=== PATIENT | male | born 1985 | race African-American/Black ===

== ENCOUNTER 2019-02-13 19:34 | Emergency (ER) | payer OTHER ==
[~2019-02-13] VITALS: Ht 182.9 cm; Wt 87.3 kg
--- NOTE | 2019-02-13 22:11 | ECGEPIP ---
[facility] - ED Test Date: 2019-02-13 Pat Name: COREEN WRIGHT Department: Room: - Gender: Male [employer]: : 1985 Requested By: HAIM Walker Order Number: [id number] Reading MD: Farshad Allan Measurements Intervals Jelm Rate: 64 P: 61 OH: 160 QRS: 52 QRSD: 83 T: 60 QT: 380 QTc: 394 Interpretive Statements SINUS RHYTHM WITH SINUS ARRHYTHMIA Comparison tracing not on file Electronically Signed on 02-13-2019 22:11:10 EDT by Farshad Allan
[2019-02-14] MEDS ORDERED: ALBUTEROL SULFATE 2.5 MG/0.5 ML INH NEB SOLN NEB ONE (01:15)
[2019-02-14 01:31] LABS: BASO % 0.7 % (0.0-1.0); EOS # 0.5 10^3/uL (0.0-0.5); HEMATOCRIT 41.8 % (42.0-52.0); LYMPH # 2.8 10^3/uL (1.5-5.0); LYMPH % 46.2 % (24.0-44.0); MEAN CORPUSCULAR HEMOGLOBIN 23.5 pg (27.0-33.0); MEAN CORPUSCULAR HGB CONC 31.1 g/dl (32.0-36.5); MEAN CORPUSCULAR VOLUME 75.6 fl (80.0-96.0); MONO # 0.4 10^3/uL (0.0-0.8); MONO % 6.5 % (0.0-5.0); NEUTROPHILS # 2.4 10^3/uL (1.5-8.5); NEUTROPHILS % 38.4 % (36.0-66.0); PLATELET COUNT, AUTOMATED 190 10^3/uL (150-450); RED BLOOD COUNT 5.53 10^6/uL (4.30-6.10); WHITE BLOOD COUNT 6.2 10^3/uL (4.0-10.0)
[2019-02-14 02:03] LABS: BLOOD UREA NITROGEN 18 MG/DL (7-18); CALCIUM LEVEL 8.6 MG/DL (8.5-10.1); CARBON DIOXIDE LEVEL 30 MEQ/L (21-32); CHLORIDE LEVEL 107 MEQ/L (98-107); CK-MB VALUE MASS < 1.0 NG/ML (<3.6); CPK CREATINE PHOSPHOKINASE 261 U/L (39-308); CREATININE FOR GFR 1.02 MG/DL (0.70-1.30); GLOMERULAR FILTRATION RATE > 60.0 (>60); GLUCOSE, FASTING 97 MG/DL (70-100); MB/CK RELATIVE INDEX 0.38 (< OR =4); SODIUM LEVEL 142 MEQ/L (136-145); TROPONIN I < 0.02 NG/ML (< 0.10)
[2019-02-14 02:56] LABS: ALBUMIN 3.8 GM/DL (3.2-5.2); ALT/SGPT 19 U/L (12-78); BILIRUBIN,DIRECT < 0.1 MG/DL (0.0-0.2); BILIRUBIN,TOTAL 0.2 MG/DL (0.2-1.0); LIPASE 70 U/L (73-393); TOTAL PROTEIN 7.9 GM/DL (6.4-8.2)
[2019-02-14] MEDS ORDERED: PROAAER10 INH (02:56)
[2019-02-14] MEDS ORDERED: PRED20TA PO (02:56)
[2019-02-14 03:28] LABS: AMPHETAMINES LEVEL URINE NEGATIVE (NEGATIVE); BARBITURATES URINE NEGATIVE (NEGATIVE); BENZODIAZEPINES URINE NEGATIVE (NEGATIVE); CANNABINOIDS URINE NEGATIVE (NEGATIVE); COCAINE METABOLITE URINE NEGATIVE (NEGATIVE); METHADONE URINE NEGATIVE (NEGATIVE); OPIATES URINE NEGATIVE (NEGATIVE); PHENCYCLIDINE URINE NEGATIVE (NEGATIVE)
[2019-02-14 03:32] VITALS: BP 116/75
--- NOTE | 2019-02-14 06:42 | REP ---
Clinical: Shortness of breath and chest pain . Comparison: None . Technique: PA and lateral. Findings: The mediastinum and cardiac silhouette are normal. The lung barker are clear and without acute consolidation, effusion, or pneumothorax. The skeletal structures are intact and normal. Impression: 1. No acute cardiopulmonary process. Electronically Signed by Supa Delvalle MD 02/14/2019 06:34 A
== END 2019-02-14 03:47 | disposition home or self-care (01) ==
LOC: M ED 19:34
DX: R00.2 Palpitations (principal); G47.00 Insomnia, unspecified; F32.9 Major depressive disorder, single episode, unspecified; F41.9 Anxiety disorder, unspecified; F17.290 Nicotine dependence, other tobacco product, uncomplicated

== ENCOUNTER 2020-10-28 08:15 | Day surgery (SDC) | payer OTHER ==
[~2020-10-28] VITALS: Ht 177.8 cm; Wt 86.2 kg
[~2020-10-28 08:15] MED LIST: NS 1,000 ML IV ONE; PRED20TA PO; PROAAER10 INH; TRAZ-257 PO; ZOLO100T PO
--- NOTE | 2020-10-28 10:26 | ROOR ---
Patient Name: Mo Khoury Procedure Date: 10/28/2020 10:05 AM Date of : 1985 Age: 35 Room: [facility] Gender: Male Note Status: Finalized Procedure: Upper Endoscopy + Biopsies Indications: Unexplained iron deficiency anemia Providers: Kapil Coley MD Referring MD: VICENTA COLLINS MD Requesting Provider: Medicines: Monitored Anesthesia Care Complications: No immediate complications. Procedure: Pre-Anesthesia Assessment: - The heart rate, respiratory rate, oxygen saturations, blood pressure, adequacy of pulmonary ventilation, and response to care were monitored throughout the procedure. The Endoscope was introduced through the mouth, and advanced to the second part of duodenum. The upper GI endoscopy was accomplished without difficulty. The patient tolerated the procedure well. Findings: The Z-line was regular and was found 40 cm from the incisors. No other significant abnormalities were identified in a careful examination of the stomach. Biopsies were taken with a cold forceps in the gastric antrum for Helicobacter pylori testing. The exam of the duodenum was otherwise normal. Biopsies for histology were taken with a cold forceps in the first portion of the duodenum for evaluation of celiac disease. The exam was otherwise without abnormality. Impression: - Z-line regular, 40 cm from the incisors. - The examination was otherwise normal. - Biopsies were taken with a cold forceps for Helicobacter pylori testing. - Biopsies were taken with a cold forceps for evaluation of celiac disease. - The examination was otherwise normal. Recommendation: - Patient has a contact number available for emergencies. The signs and symptoms of potential delayed complications were discussed with the patient. Return to normal activities tomorrow. Written discharge instructions were provided to the patient. - Resume previous diet. - Discharge patient to home. - Continue present medications. - Await pathology results. - Telephone GI clinic for pathology results in 1 week. - Return to referring physician. - The findings and recommendations were discussed with the patient's family. Procedure Code(s): --- Professional --- 97094, Esophagogastroduodenoscopy, flexible, transoral; with biopsy, single or multiple Diagnosis Code(s): --- Professional --- D50.9, Iron deficiency anemia, unspecified CPT copyright 2019 [employer]. All rights reserved. The codes documented in this report are preliminary and upon telephone coin box collector review may be revised to meet current compliance requirements. Kapil Coley MD Kapil Coley MD 10/28/2020 10:25:49 AM Electronically signed by Kapil Coley MD Number of Addenda: 0 Note Initiated On: 10/28/2020 10:05 AM Estimated Blood Loss: Estimated blood loss: none.
[2020-10-28] MEDS ORDERED: LIDOCAINE 2% 100MG/5ML SDV (FOR ANES.) As Ordered ONE (10:32)
[2020-10-28] MEDS ORDERED: propofoL 500 MG/50 ML VIAL As Ordered ONE (10:32)
[2020-10-28] MEDS ORDERED: fentaNYL 100 MCG/2 ML INJECTION (J3010) As Ordered ONE (10:32)
--- NOTE | 2020-10-28 10:38 | ROOR ---
Patient Name: Mo Khoury Procedure Date: 10/28/2020 10:06 AM Date of : 1985 Age: 35 Room: [facility] Gender: Male Note Status: Finalized Procedure: Total Colonoscopy to Cecum + ileoscopy Indications: Rectal bleeding, Unexplained iron deficiency anemia Providers: Kapil Coley MD Referring MD: VICENTA COLLINS MD Requesting Provider: Medicines: Monitored Anesthesia Care Complications: No immediate complications. Procedure: Pre-Anesthesia Assessment: - The heart rate, respiratory rate, oxygen saturations, blood pressure, adequacy of pulmonary ventilation, and response to care were monitored throughout the procedure. The Colonoscope was introduced through the anus and advanced to the terminal ileum, with identification of the appendiceal orifice and IC valve. The colonoscopy was performed without difficulty. The patient tolerated the procedure well. The quality of the bowel preparation was excellent. Findings: The perianal and digital rectal examinations were normal. Non-bleeding external and internal hemorrhoids were found during retroflexion. The hemorrhoids were moderate, medium-sized and Grade III (internal hemorrhoids that prolapse but require manual reduction). No other significant abnormalities were identified in a careful examination of the remainder of the colon. The terminal ileum appeared normal. The exam was otherwise without abnormality on direct and retroflexion views. Impression: - Non-bleeding external and internal hemorrhoids. - The examined portion of the ileum was normal. - The examination was otherwise normal on direct and retroflexion views. - No specimens collected. - The exam was otherwise normal to the cecum. Recommendation: - Patient has a contact number available for emergencies. The signs and symptoms of potential delayed complications were discussed with the patient. Return to normal activities tomorrow. Written discharge instructions were provided to the patient. - High fiber diet. - Discharge patient to home. - Continue present medications. - Repeat colonoscopy at age 51 for screening purposes. - Return to referring physician. - Refer to a surgeon. - The findings and recommendations were discussed with the patient's family. Procedure Code(s): --- Professional --- 69188, Colonoscopy, flexible; diagnostic, including collection of specimen(s) by brushing or washing, when performed (separate procedure) Diagnosis Code(s): --- Professional --- K64.2, Third degree hemorrhoids K62.5, Hemorrhage of anus and rectum D50.9, Iron deficiency anemia, unspecified CPT copyright 2019 [employer]. All rights reserved. The codes documented in this report are preliminary and upon medical coder review may be revised to meet current compliance requirements. Kapil Coley MD Kapil Coley MD 10/28/2020 10:37:16 AM Electronically signed by Kapil Coley MD Number of Addenda: 0 Note Initiated On: 10/28/2020 10:06 AM Estimated Blood Loss: Estimated blood loss: none.
[2020-10-28 11:09] VITALS: BP 154/86
== END 2020-10-28 11:10 | disposition home or self-care (01) ==
LOC: M OPP 08:15
PROVIDERS: ATTEND Internal Medicine Gastroenterology
DX: K62.5 Hemorrhage of anus and rectum (principal); D50.9 Iron deficiency anemia, unspecified; K29.70 Gastritis, unspecified, without bleeding; F17.290 Nicotine dependence, other tobacco product, uncomplicated; Z79.899 Other long term (current) drug therapy
CPT/HCPCS: 43239; 45378; 88305; J3010

== ENCOUNTER → 2021-08-28 | Outpatient (CLI) | payer OTHER ==
[~2021-08-28] MED LIST changes: -NS 1,000 ML IV ONE
== END ==
LOC: M SLEEP 15:04
PROVIDERS: ATTEND Internal Medicine
DX: G47.33 Obstructive sleep apnea (adult) (pediatric) (principal)

== ENCOUNTER 2022-05-26 10:45 | Emergency (ER) | payer OTHER ==
[~2022-05-26] VITALS: Ht 182.9 cm; Wt 91.8 kg
[2022-05-26 14:57] VITALS: BP 120/71
== END 2022-05-26 15:04 | disposition home or self-care (01) ==
LOC: M ED 10:45
DX: K60.3 Anal fistula (principal); K62.5 Hemorrhage of anus and rectum; D64.9 Anemia, unspecified; F10.10 Alcohol abuse, uncomplicated; Z79.52 Long term (current) use of systemic steroids

== ENCOUNTER → 2023-11-29 | Outpatient (CLI) | payer OTHER | LOC: M PLAIMG 12:25 | PROVIDERS: ATTEND Physician Assistant Surgical | DX: M47.27 Other spondylosis with radiculopathy, lumbosacral region (principal); M54.6 Pain in thoracic spine ==

== ENCOUNTER → 2024-04-12 | Outpatient (CLI) | payer OTHER ==
[2024-04-12 10:47] LABS: PLATELET COUNT, AUTOMATED 212 10^3/uL (150-450)
[2024-04-12 11:00] LABS: INR 0.93; PARTIAL THROMBOPLASTIN TIME 27.3 SECONDS (24.8-34.2); PROTHROMBIN TIME 12.8 SECONDS (12.5-14.5)
== END ==
LOC: M LAB 09:37
PROVIDERS: ATTEND Physical Medicine & Rehabilitation
DX: Z01.812 Encounter for preprocedural laboratory examination (principal)